=== PATIENT | male | born 2000 | race Caucasian/White ===

== ENCOUNTER 2018-06-13 16:20 | Emergency (ER) | payer OTHER ==
[2018-06-13 16:26] VITALS: BP 145/85
--- NOTE | 2018-06-13 16:49 | EDPHY ---
H & P Stated Complaint: fell skiing 06/10 R clavicle/shoulder injury Time Seen by Provider: 06/13/18 16:41 HPI/ROS: HPI: This is a 17-year-old male who presents with Chief Complaint: fell skiing 06/10 R clavicle/shoulder injury Location: Right clavicle, shoulder Quality: Injury Duration: 3 days ago Signs and Symptoms: No bleeding, no radiation, no numbness, no weakness, no tingling, no incontinence, no decreased range of motion, no swelling, no pain, no fever Timing: Acute Severity: Moderate Context: Patient is right-hand dominant, complains of right shoulder injury while skiing approximately 3 days ago on Monday. He reports that his ski hit a log that he did not see down the slope and he was thrown forward into the snow. He landed directly onto his right shoulder. He felt immediate constant pain over his mid clavicle that radiating into his sternum. He was seen by [facility] yesterday evening with an x-ray that showed no fracture. He has been wearing his friend's sling with moderate relief of the discomfort. He reports that abduction and movements over his head exacerbate the pain. He has a prior history of AC joint separation and his left due to lacrosse. He is a student at [employer]. Denies LOC/head injury/neck pain/dizziness/nausea/vomiting/amnesia/radiation/weakness/ paresthesias. Modifying Factors: Taking ibuprofen at bedtime Comment: ROS: A comprehensive 10 system review of systems is otherwise negative aside from elements mentioned in the history of present illness. MEDICAL/SURGICAL/SOCIAL HISTORY: Medical history: Generally healthy. Does not take any regular medications. Surgical history: Denies Social history: Originally from [place]. Student at [employer]. CONSTITUTIONAL: Extremely polite and cooperative physically fit teenage white male. awake and alert, no obvious distress HEENT: Atraumatic and normocephalic. NECK: supple, no midline tenderness, flexion 45 degrees, extension 45 degrees, right and left lateral flexion 45 degrees. No meningismus. Cardiovascular: Normal S1/S2, regular rate, regular rhythm, without murmur rub or gallop. PULMONARY/CHEST: Symmetrical and nontender. no crepitus. Clear to auscultation bilaterally. Good air movement. No accessory muscle usage. ABDOMEN: Soft, nondistended, nontender, no ecchymosis. PELVIC: no pain with rocking; bilateral hips flexion 125 degrees, extension 30 degrees, with no pain internal rotation and no pain external rotation. BACK: No midline tenderness, no paraspinous spasm, deep tendon reflexes 2/2, no pain with straight leg raise, No foot drop. Achilles reflexes are equal bilaterally. Able to walk on heels and toes without difficulty. EXTREMITIES: 2/2 pulses, strength 5/5, left SHOULDER: Tenderness over the AC joint; no clavicular deformity appreciated. Arc test abduction to 80, abduction to 45, horizontal flexion 90, horizontal extension to 15, deltoid strength 4/5. Mild pain with Neer test/Galan test (impingement). DIP/PIP/MCP flexion/extension intact with good light touch sensation. no deformities, no clubbing, no cyanosis or edema. NEUROLOGICAL: no focal neuro deficits. GCS 15. Light touch sensation intact. SKIN: Warm and dry, no erythema. no rash. Good capillary refill. Source: Patient Exam Limitations: No limitations - Medical/Surgical History Hx Asthma: No Hx Chronic Respiratory Disease: No Hx Diabetes: No Hx Cardiac Disease: No Hx Renal Disease: No Hx Cirrhosis: No Hx Alcoholism: No Hx HIV/AIDS: No Hx Splenectomy or Spleen Trauma: No Other PMH: Gia gallegos inj - Social History Smoking Status: Never smoked Constitutional: Initial Vital Signs Temperature (C) 36.7 C 06/13/18 16:24 Heart Rate 80 06/13/18 16:24 Respiratory Rate 16 06/13/18 16:24 Blood Pressure 145/85 H 06/13/18 16:24 O2 Sat (%) 97 06/13/18 16:24 O2 Delivery Mode Room Air Allergies/Adverse Reactions: No Known Allergies Allergy (Unverified 06/13/18 16:23) Home Medications: Medication Instructions Recorded NK [No Known Home Meds] 06/13/18 Medical Decision Making - Diagnostics Imaging Results: Imaging Impressions Clavicle X-Ray 06/13/18 16:27 Impression: Normal clavicle series. ED Course/Re-evaluation: Right shoulder x-ray ordered and my read shows no acute fracture, dislocation, pneumothorax. Suspect AC joint sprain and clavicular sternal sprain. Advised to continue in sling, ibuprofen use for pain control, referral for Orthopedics given. No signs of neurovascular compromise/tenting of skin/compartment syndrome/ extremities and joints examined above and below area of concern and are neurovascularly intact. This patient was seen under the supervision of my secondary supervising physician. I evaluated care for this patient independently. Discussed this patient with Dr. Aguiar. Differential Diagnosis: Differential diagnosis includes but is not limited to AC joint separation, clavicle fracture, clavicular sternal joint instability, rotator cuff injury, bursitis. Departure - Departure Disposition: Home, Routine, Self-Care Clinical Impression: Sprain of right acromioclavicular joint, initial encounter Condition: Good Instructions: Acromioclavicular Separation (ED), How to Use a Sling (ED) Additional Instructions: Wear the sling while out of bed until pain free or seen by Orthopedics. Take Tylenol 650 mg every 4 hours and/or Ibuprofen 600 mg every 8 hours with food as needed for pain. Apply ice for 30 minutes at a time 2-3 times per day as needed for pain. Follow up with Orthopedics in 7-10 days at which time they will evaluate and recommend with you if conservative management versus further imaging is indicated. The x-rays obtained in the emergency department today demonstrate no evidence of an obvious fracture. Sometimes fractures are not obvious on the initial set of x-rays performed in the ED. For this reason, you should have repeat x-rays performed in 7-10 days if you are having any pain exclude the possibility of an occult fracture. Referrals: Jordan Gore MD [Medical Doctor] - As per Instructions Stand Alone Forms: School Excuse
== END 2018-06-13 17:04 | disposition home or self-care (01) ==
DX: S43.51XA Sprain of right acromioclavicular joint, initial encounter (principal); W22.8XXA Striking against or struck by other objects, initial encounter; Y93.23 Activity, snow (alpine) (downhill) skiing, snowboarding, sledding, tobogganing and snow tubing; Y92.828 Other wilderness area as the place of occurrence of the external cause; Y99.9 Unspecified external cause status

== ENCOUNTER 2018-08-03 09:19 | Emergency (ER) | payer OTHER ==
[2018-08-03] MEDS ORDERED: NS 1,000 ML IV ONE (09:57)
[2018-08-03] MEDS ORDERED: ONDANSETRON 4 MG/2 ML VIAL IVP ONE (09:57)
--- NOTE | 2018-08-03 09:57 | EDPHY ---
H & P Stated Complaint: fell this morning hitting back/laceration on counter/etoh last night Source: Patient Exam Limitations: No limitations - Personal History Current Tetanus/Diphtheria Vaccine: Yes - Medical/Surgical History Hx Asthma: No Hx Chronic Respiratory Disease: No Hx Diabetes: No Hx Cardiac Disease: No Hx Renal Disease: No Hx Cirrhosis: No Hx Alcoholism: No Hx HIV/AIDS: No Hx Splenectomy or Spleen Trauma: No Other PMH: Gia gallegos inj - Social History Smoking Status: Never smoked Time Seen by Provider: 08/03/18 09:44 HPI/ROS: HPI: This is a 17-year-old male who presents with Chief Complaint: fell this morning hitting back/laceration on counter/etoh last night Location: Right thoracic back Quality: Injury/bleeding Duration: Prior to arrival Signs and Symptoms: + bleeding, no radiation, no numbness, no weakness, no tingling, no incontinence, no decreased range of motion, no swelling, + pain, no fever Timing: Acute Severity: Moderate Context: Patient admits to drinking alcohol last night excessively to the point of vomiting 2 times and then waking up this morning with feeling the need to vomit again. He reports that he was walking to the bathroom when he fainted and landed on the floor. On the way down he hit the coffee table with his right mid back. He felt immediate, constant, moderate pain. He sustained the laceration it started to bleed. This was a witnessed fall. Patient briefly fainted for a few seconds and then came to when he hit the floor. Denies neck pain/dizziness/amnesia. Reports tetanus is current. Patient reports that he feels fine but just a little "hung over."Patient denies any back pain. Modifying Factors: Direct pressure to the wound Comment: ROS: A comprehensive 10 system review of systems is otherwise negative aside from elements mentioned in the history of present illness. MEDICAL/SURGICAL/SOCIAL HISTORY: Medical history: Generally healthy. Does not take any regular medications. Surgical history: Left shoulder surgery Social history: Never smoked. Denies tobacco, drug use. CONSTITUTIONAL: Polite and talkative, teenage white male, awake and alert, no obvious distress HEENT: Atraumatic and normocephalic. NECK: supple, no midline tenderness, flexion 45 degrees, extension 45 degrees, right and left lateral flexion 45 degrees. No meningismus. Cardiovascular: Normal S1/S2, regular rate, regular rhythm, without murmur rub or gallop. PULMONARY/CHEST: Symmetrical and nontender. no crepitus. Clear to auscultation bilaterally. Good air movement. No accessory muscle usage. ABDOMEN: Soft, nondistended, nontender, no ecchymosis. PELVIC: no pain with rocking; bilateral hips flexion 125 degrees, extension 30 degrees, with no pain internal rotation and no pain external rotation. BACK: No midline tenderness, no paraspinous spasm, deep tendon reflexes 2/2, no pain with straight leg raise, No foot drop. Achilles reflexes are equal bilaterally. Able to walk on heels and toes without difficulty. EXTREMITIES: 2/2 pulses, strength 5/5, DIP/PIP/MCP flexion/extension intact with good light touch sensation. no deformities, no clubbing, no cyanosis or edema. NEUROLOGICAL: no focal neuro deficits. GCS 15. Light touch sensation intact. SKIN: Warm and dry, no erythema. no rash. Good capillary refill. Right thoracic inferior to the scapula 4 in x 2 in laceration with active bleeding (Jazzmine Das) Constitutional: Initial Vital Signs Temperature (C) 36.3 C 08/03/18 09:37 Heart Rate 98 08/03/18 09:37 Respiratory Rate 17 08/03/18 09:37 Blood Pressure 124/83 H 08/03/18 09:37 O2 Sat (%) 92 08/03/18 09:37 O2 Delivery Mode Room Air Allergies/Adverse Reactions: No Known Allergies Allergy (Verified 08/03/18 09:37) Home Medications: Medication Instructions Recorded NK [No Known Home Meds] 06/13/18 Medical Decision Making - Diagnostics EKG Interpretation: 12 lead EKG: Indication: Syncope Rhythm: Normal sinus rhythm, rate of 77 beats per minute Gladys: Normal Intervals: Normal QRS: Normal ST segments: Normal INTERPRETATION: Early repolarization The 12 lead EKG was interpreted by myself and with attending. (Jazzmine Das) Procedures: Procedure: Laceration repair. Verbal consent was obtained from the patient. The 6 cm, deep, complex laceration on the right thoracic back wall was anesthetized in the usual fashion using 10 mL of 1% lidocaine with epinephrine. The wound was irrigated, draped and explored to its base with a gloved finger. There were no deep structures involved. No tendon injury was identified. The wound was repaired with 2 layer closure; #4 deep horizontal buried 4-0 Vicryl and subcutaneous layer with #8, 4-0 Prolene in a simple interrupted pattern. Good hemostasis was achieved and patient tolerated procedure well. Clean sterile dressing applied. The procedure was performed by myself. (Jazzmine Das) ED Course/Re-evaluation: Vital signs reviewed and stable upon arrival. IV access and i-STAT labs ordered and stable. Will obtain EKG due to fainting likely due to vasovagal versus dehydration. EKG my read shows normal sinus rhythm with rate of 77 beats per minute with early repolarization pattern Given 1 L normal saline and IV Zofran Thoracic chest x-ray ordered and my read via PAC shows no acute fracture. Radiology questions possibly minimal compression fractures of T6, T7, T8, T9 and T12 of unknown acuity. Patient has no thoracic or lumbar midline tenderness. Denies any pain. Counseled him to have repeat x-ray images. 1038: Labs reviewed and grossly unremarkable. NYZO=[id number] Laceration repaired and verbal and written wound care instructions provided Friend at bedside will drive patient home. This patient was seen under the supervision of my secondary supervising physician. I evaluated care for this patient independently. Discussed this patient with Dr. Pelletier who did not see the patient. (Jazzmine Das) The patient was evaluated and managed by the physician assistant corporation counsel. I have reviewed this chart and I agree with the findings and plan of care as documented , as indicated by my signature. I am the secondary supervising physician. ( Yacny Pelletier) Differential Diagnosis: Syncope including but not limited to vasovagal syncope, arrhythmia, dehydration , and blood loss. (Jazzmine Das) - Data Points Laboratory Results: Laboratory Results 08/03/18 09:54 08/03/18 09:54 Medications Given: Discontinued Medications Sodium Chloride (Ns) 1,000 mls @ 0 mls/hr IV ONCE ONE; Wide Open PRN Reason: Protocol Stop: 08/03/18 09:58 Last Admin: 08/03/18 10:07 Dose: 1,000 mls Ondansetron HCl (Zofran) 4 mg IVP EDNOW ONE Stop: 08/03/18 09:58 Last Admin: 08/03/18 10:08 Dose: 4 mg Point of Care Test Results: Chemistry 08/03/18 10:04 POC Sodium 144 mEq/L mEq/L (135-145) POC Potassium 4.1 mEq/L mEq/L (3.3-5.0) POC Chloride 101 mEq/L mEq/L (97-110) POC BUN 6 mg/dL L mg/dL (7-23) POC Creatinine 1.0 mg/dL mg/dL (0.7-1.3) POC Glucose 141 mg/dL H mg/dL (70-100) ISTAT H&H 08/03/18 10:04 POC Hgb 18.0 gm/dL H gm/dL (13.7-17.5) POC Hct 53 % H % (40-51) Departure - Departure Disposition: Home, Routine, Self-Care Clinical Impression: Vasovagal syncope, Alcohol intoxication, Lacerat back wall thorax w/o FB w/o penentrat into thoracic cavity Condition: Good Instructions: Care For Your Stitches (ED), Laceration (ED), Alcohol Intoxication (ED) Additional Instructions: Keep the dressing dry and in place for 48 hours. After 48 hours, you may remove the dressing; wash the site daily with mild soap and water; then pat dry. Take Tylenol 650 mg every 4 hours and/or Ibuprofen 600 mg every 8 hours with food as needed for pain. Apply ice for 30 minutes at a time; 2-3 times per day for the next 1-2 days. Rest as much as possible until you are feeling better. Do not consume alcohol for the next 2-3 days. The x-rays obtained in the emergency department today demonstrate no evidence of an obvious fracture but question possible minimal compressions of T6, T7, T8 , T9 and T12 of unknown acuity. Sometimes fractures are not obvious on the initial set of x-rays performed in the ED. For this reason, you should have repeat x-rays performed in 7-10 days if you are having any pain exclude the possibility of an occult fracture. Wound Care Follow-Up: Removal of sutures in [10-14] days. Suture removal is complimentary in uncomplicated cases. Infection or abnormal findings would require reevaluation by the MD. In that case, you may be billed. Return to the ER immediately if you experience new or worsening pain, discoloration, numbness, tingling, or any other symptoms that concern you. Referrals: [facility] [Clinic] - As per Instructions
[2018-08-03 10:29] LABS: PLATELET COUNT 248 10^3/uL (150-400)
[2018-08-03 11:22] VITALS: BP 118/68
--- NOTE | 2018-08-03 15:27 | CPEKG ---
Test Reason : OPEN Blood Pressure : / mmHG Vent. Rate : 077 BPM Atrial Rate : 077 BPM P-R Int : 172 ms QRS Dur : 100 ms QT Int : 359 ms P-R-T Axes : 079 092 021 degrees QTc Int : 407 ms Sinus rhythm Borderline right axis deviation Borderline Q waves in inferior leads ST elev, probable normal early repol pattern Confirmed by Yancy Pelletier ([id number]) on 08/03/2018 3:26:53 PM Referred By: Confirmed By:Yancy Pelletier
== END 2018-08-03 11:24 | disposition home or self-care (01) ==
PROC: 0HQ6XZZ Repair Back Skin, External Approach (ICD-10-PCS; principal; 2018-08-03)
DX: S21.212A Laceration without foreign body of left back wall of thorax without penetration into thoracic cavity, initial encounter (principal); R55 Syncope and collapse; F10.920 Alcohol use, unspecified with intoxication, uncomplicated; W01.190A Fall on same level from slipping, tripping and stumbling with subsequent striking against furniture, initial encounter; Y92.9 Unspecified place or not applicable; Y93.9 Activity, unspecified; Y99.9 Unspecified external cause status
CPT/HCPCS: 82435-PO; 82565-PO; 82947-PO; 84132-PO; 84295-PO; 84520-PO; 85014-PO; 96374; G0480; J2405